=== PATIENT | female | born 1985 | race Caucasian/White ===

== ENCOUNTER 2020-12-04 22:09 | Emergency (ER) | payer OTHER ==
--- NOTE | 2020-12-04 22:14 | EDM.PDOC ---
ED HPI GENERAL MEDICAL PROBLEM - General Stated Complaint: CONGESTION, POSSIBLE COVID Time Seen by Provider: 12/04/20 22:10 Source of Information: Reports: Patient History Limitations: Reports: No Limitations - History of Present Illness INITIAL COMMENTS - FREE TEXT/NARRATIVE: 35-year-old female no relevant past medical history presents for 1 day of dry cough and sinus congestion with mild sore throat. She noted this evening that she put some Vicks vapor rub on her chest and could not smell it and became concerned that she might have Covid. She has not had a Covid vaccination. She has not had Covid in the past. She denies any shortness of breath. She had low-grade temperature at home of 99 but no fevers. Eating and drinking well. ED ROS GENERAL - Review of Systems Review Of Systems: Comprehensive ROS is negative, except as noted in HPI. ED EXAM, GENERAL - Physical Exam Exam: See Below Exam Limited By: No Limitations General Appearance: Alert, WD/WN, No Apparent Distress Ears: Normal External Exam Throat/Mouth: Normal Inspection, Normal Lips, Normal Oropharynx, Normal Voice, No Airway Compromise Head: Atraumatic, Normocephalic Neck: Normal Inspection Respiratory/Chest: No Respiratory Distress, Lungs Clear, Normal Breath Sounds, No Accessory Muscle Use Cardiovascular: Normal Peripheral Pulses, Regular Rate, Rhythm Extremities: Normal Inspection Neurological: Alert Psychiatric: Normal Affect, Normal Mood Skin Exam: Warm, Dry, Intact, Normal Color Course - Vital Signs Last Recorded V/S: Last Vital Signs Temp 97.6 F 12/04/20 22:18 Pulse 78 12/04/20 22:18 Resp BP 134/69 12/04/20 22:18 Pulse Ox 100 12/04/20 22:18 - Orders/Labs/Meds Labs: Laboratory Tests 12/04/20 Range/Units 22:19 SARS-CoV-2 RNA ([facility]) NEGATIVE (NEGATIVE) - Re-Assessments/Exams Free Text/Narrative Re-Assessment/Exam: 12/04/20 22:25 Patient symptoms are concerning for COVID-19 infection. Will get a COVID-19 swab. Will defer chest x-ray as patient has no shortness of breath, saturating well, no abnormality on pulmonary exam. 12/04/20 23:05 COVID-19 testing is negative. I discussed with patient that this could be a false negative and that she could always recheck in a couple of days and perhaps get a PCR test. Patient understands. Return precautions discussed. Departure - Departure Time of Disposition: 23:06 Disposition: Home, Self-Care 01 Condition: Good Clinical Impression: Cough - Discharge Information Instructions: Cough, Adult, [id number] Referrals: Brandi Patel DO [Primary Care Provider] - Additional Instructions: Your COVID-19 testing was negative. It is always possible that it could be a false negative so if your symptoms worsen you could consider getting retested. You would also consider getting a PCR test to as these are a little bit more accurate than the rapid test that we do in the emergency department. The following information is given to patients seen in the emergency department who are being discharged to home. This information is to outline your options for follow-up care. We provide all patients seen in our emergency department with a follow-up referral. The need for follow-up, as well as the timing and circumstances, are variable depending upon the specifics of your emergency department visit. If you don't have a primary care physician on staff, we will provide you with a referral. We always advise you to contact your personal physician following an emergency department visit to inform them of the circumstance of the visit and for follow-up with them and/or the need for any referrals to a consulting specialist. The emergency department will also refer you to a specialist when appropriate. This referral assures that you have the opportunity for follow-up care with a specialist. All of these measure are taken in an effort to provide you with optimal care, which includes your follow-up. Under all circumstances we always encourage you to contact your private physician who remains a resource for coordinating your care. When calling for follow-up care, please make the office aware that this follow-up is from your recent emergency room visit. If for any reason you are refused follow-up, please contact the [facility] Emergency Department at and asked to speak to the emergency department charge nurse. Please follow up with your primary care physician. If you do not have a primary care physician, see below: [facility] [address] [place] [id number] [facility] [address] [place], [place] [id number] [facility] [address], [place] [address] Sepsis Event Note (ED) - Focused Exam Vital Signs: Vital Signs Temp Pulse BP Pulse Ox 12/04/20 22:18 97.6 F 78 134/69 100
== END 2020-12-04 23:14 | disposition home or self-care (01) ==
LOC: MW.ED 22:09
DX: R05 Cough (principal); Z20.822 Contact with and (suspected) exposure to COVID-19
CPT/HCPCS: 99282; 99283; U0002